=== PATIENT | male | born 1950 | race Caucasian/White ===

== ENCOUNTER → 2019-11-05 | Outpatient (CLI) | payer MEDICARE, SELFPAY ==
--- NOTE | 2019-11-05 | IMM_PTH ---
PATIENT: TERRY BLANCO LOC: [facility] U#:[id number] AGE/SX: 68/M ROOM: RE11/05/[address]: Dr. Rick Alves MD : 1950 BED: DIS: 11/05/2019 SPEC #: [id number] RECD: 11/07/19 13:25 STATUS: JUDITH REJulio Cesar #: [id number] LUIS: 11/05/19 00:[address]: Rick Alves DEPT: IMMUNOHISTOCHEMISTRY RECD BY: Ynes Yee ENTERED: 11/07/19 13:26 SP TYPE: IMMUNO OTHR DR: Dr. Marcos Christiansen MD Tissues: A - PROSTATE RIGHT D - PROSTATE LEFT Procedures: 34BE12 (add) Pankeratin (add) P40 (add) 34BE12 (initial) PHYSICIAN & INSTITUTION [place] [id number] SPECIMEN INFORMATION: Tissue Source: A - Right prostate, apex, core biopsy, D - Left prostate, apex, core biopsy Clinical Info: Elevated PSA Specimen Number: [id number] A & D CPT code: 48725, 02679 x5 METHODOLOGY: Deparaffinized sections of prefer/formalin-fixed tissue or PAP/DQ stained slides are incubated with monoclonal/polyclonal antibodies/oligonucleotide probes. Localization is made via biotin free immunoperoxidase method. Appropriate controls are performed and reacted as expected. Results on target cell population are indicated in the following table: RESULTS: ANTIBODY / CLONE RESULT Block A P40 (BC28) negative 34BE12 (34BE12) negative AE1-3 (AE1/AE3/PCK26) positive Block D P40 (BC28) negative 34BE12 (34BE12) negative AE1-3 (AE1/AE3/PCK26) positive These tests were developed and their performance characteristics determined by [facility]. They may not have been cleared or approved by the U.S. Food and Drug Administration. The FDA has determined that such clearance or approval is not necessary. The above immunohistochemical/dualISH markers are ordered and reviewed by the Pathologist. INTERPRETATION: A. Right prostate, apex, core biopsy: Adenocarcinoma. D. Left prostate, apex, core biopsy: Adenocarcinoma. SOULEYMANE:alexandrea 11/08/19
--- NOTE | 2019-11-05 13:15 | PROSBIL_PTH ---
PATIENT: TERRY BLANCO LOC: N[facility] U#:[id number] AGE/SX: 68/M ROOM: RE11/05/[address]: Dr. Rick Alves MD : 1950 BED: DIS: 11/05/2019 SPEC #: [id number] RECD: 11/05/19 17:08 STATUS: JUDITH EUGENE #: [id number] LUIS: 11/05/19 13:[address]: Rick Alves DEPT: SURGICAL PATHOLOGY RECD BY: Brandan Hudson ENTERED: 11/06/19 10:35 SP TYPE: PROST BX TOPHER DR: Dr. Marcos Christiansen MD Tissues: A - PROSTATE RIGHT B - PROSTATE RIGHT C - PROSTATE RIGHT D - PROSTATE LEFT E - PROSTATE LEFT F - PROSTATE LEFT Procedures: PROSTATE BX HEADER OPERATION: Prostate biopsy PRE-OP DIAGNOSIS: Elevated PSA TISSUE SUBMITTED: A - Right apex, B - Right mid, C - Right base, D - Left apex, E - Left mid, F - Left base MICROSCOPIC DIAGNOSIS A. Right prostate, apex, core biopsy: Prostatic adenocarcinoma. Chaparro grade: 5+3=8 Number of cores involved: 1/1 Proportion of tissue involved: ~10-15% Perineural invasion: Not identified. Greatest tumor length: 0.1 cm See comment. B. Right prostate, mid, core biopsy: Prostatic adenocarcinoma. Chaparro grade: 5+3=8 Number of cores involved: 2/2 Proportion of tissue involved: ~30-40% Perineural invasion: Not identified. Greatest tumor length: 0.4 cm C. Right prostate, base, core biopsy: Prostatic adenocarcinoma. Lopeno grade: 5+4=9 Number of cores involved: 2/2 Proportion of tissue involved: ~80% Perineural invasion: Present. Greatest tumor length: 1.3 cm See comment. D. Left prostate, apex, core biopsy: Prostatic adenocarcinoma. Lopeno grade: 3+4=7 Number of cores involved: 1/1 Proportion of tissue involved: ~10% Perineural invasion: Not identified. Greatest tumor length: 0.1 cm See comment. E. Left prostate, mid, core biopsy: Prostatic tissue, negative for malignancy. F. Left prostate, base, core biopsy: Prostatic tissue, negative for malignancy. SJ:alexandrea 11/07/19 COMMENT A. Immunohistochemistry ([id number]) supports the above diagnosis. C. Focal tertiary pattern 3 is also noted. D. Immunohistochemistry ([id number]) supports the above diagnosis. Case has been reviewed in consultation with Dr. Calderon who concurs with the above diagnosis. IDC:AM MICROSCOPIC DESCRIPTION Slides are reviewed. GROSS DESCRIPTION A - Received is one container designated prostate, right apex. The specimen consists of one elongated fragment of light daily-white soft tissue measuring 1.3 cm in length and 0.1 cm in diameter. The specimen is totally submitted in one cassette. B - Received is one container designated prostate, right mid. The specimen consists of two elongated fragments of light daily-white soft tissue measuring 1.2 and 1.5 cm in length and 0.1 cm in diameter. The specimen is totally submitted in one cassette. C - Received is one container designated prostate, right base. The specimen consists of two elongated fragments of light daily-white soft tissue measuring 1.3 and 1.5 cm in length and 0.1 cm in diameter. The specimen is totally submitted in one cassette. D - Received is one container designated prostate, left apex. The specimen consists of one elongated fragment of light daily-white soft tissue measuring 1.1 cm in length and 0.1 cm in diameter. The specimen is totally submitted in one cassette. E - Received is one container designated prostate, left mid. The specimen consists of two elongated fragments of light daily-white soft tissue each measuring 1.2 cm in length and 0.1 cm in diameter. The specimen is totally submitted in one cassette. F - Received is one container designated prostate, left base. The specimen consists of two elongated fragments of light daily-white soft tissue measuring 1 and 1.5 cm in length and 0.1 cm in diameter. The specimen is totally submitted in one cassette. / SOULEYMANE:alexandrea 11/06/19 TC:0 CPT: G0146
== END | disposition home or self-care (01) ==
LOC: LABSPEC 11-06 10:27
PROVIDERS: PCP Family Medicine; Referring Provider Urology; Visit Provider Urology
DX: R97.20 Elevated prostate specific antigen [PSA] (principal)
CPT/HCPCS: 88305; 88341; 88342; G0416

== ENCOUNTER → 2019-11-15 09:59 | Outpatient (CLI) | payer MEDICARE, SELFPAY ==
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
== END ==
PROVIDERS: PCP Family Medicine; Referring Provider Urology; Visit Provider Urology
DX: C61 Malignant neoplasm of prostate (principal)
CPT/HCPCS: 78306

== ENCOUNTER → 2019-11-19 14:19 | Outpatient (CLI) | payer MEDICARE, SELFPAY ==
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
[2019-11-19 14:46] LABS: CREATININE FINGERSTICK 0.6 mg/dL (0.70-1.30)
== END ==
PROVIDERS: PCP Family Medicine; Referring Provider Urology; Visit Provider Urology
DX: C61 Malignant neoplasm of prostate (principal)
CPT/HCPCS: 74178; Q9967

== ENCOUNTER → 2022-11-12 | Outpatient (CLI) | payer MEDICARE, SELFPAY ==
--- NOTE | 2022-11-12 07:18 | CT_ITS ---
STUDY: CT ABDOMEN AND PELVIS WITH AND WITHOUT CONTRAST REASON FOR EXAM: Male, 71 years old. GROSS HEMATURIA. History of prostate carcinoma and prior prostatectomy. RADIATION DOSAGE (If Supplied By Facility): CTDIvol = ( 25.91 ) mGy, DLP = ( 5205.57 ) mGycm TECHNIQUE: Transaxial images were obtained from the dome of the diaphragm to the symphysis pubis without oral contrast. IV 100mL Isovue-300 was administered. Sagittal and coronal images were reconstructed. Individualized dose optimization techniques were used for this CT. COMPARISON: Comparison is made with prior study November 19, 2019. FINDINGS: The visualized lung bases are unremarkable. Coronary artery calcification. There is decreased attenuation of the liver consistent with steatosis. There are multiple small gallstones. Normal spleen. Normal pancreas. Normal bilateral adrenal glands. Mild degree of bilateral hydronephrosis and hydroureter down to the ureterovesical junction. There is a small hiatal hernia. Normal small intestine. There are multiple colonic diverticula consistent with diverticulosis. The appendix is visualized and appears normal. There is scattered atherosclerotic calcification of the abdominal aorta and its major visceral branches, without a demonstrated aneurysm. Normal inferior vena cava. There is borderline retroperitoneal lymphadenopathy with enlarged nodes no greater than 10mm in the short axis diameter. Diffuse bladder wall thickening. Contracted urinary bladder. The patient is status post prostatectomy. There now is evidence of diffuse soft tissue prominence in the presacral region down to the coccygeal region. This may represent recurrent tumor. There is a small umbilical hernia containing fat. Small bilateral benign-appearing inguinal lymph nodes. There are mild degenerative changes of the visualized lumbar spine. CT/CT Abd/Pelvis W/WO Contrast IMPRESSION: Bilateral hydronephrosis and hydroureter. Diffuse bladder wall thickening. Diffuse presacral soft tissue swelling in the pelvis. Recurrent neoplastic process should BE ruled out. Fatty infiltration of the liver. Multiple small gallstones. Electronically Signed: Guy Ortiz MD at 12:51 EDT ,
[2022-11-12 07:47] LABS: EGFR FINGERSTICK > 60.0000 mL/min (>60)
== END | disposition home or self-care (01) ==
PROVIDERS: PCP Family Medicine; Referring Provider Urology; Visit Provider Urology
DX: C61 Malignant neoplasm of prostate (principal); R31.0 Gross hematuria
CPT/HCPCS: 74178; Q9967

== ENCOUNTER → 2023-05-19 | Outpatient (CLI) | payer MEDICARE, SELFPAY ==
--- OUTSIDE RECORDS SUMMARY | 2023-05-19 10:22 | XMS RPT_ITS | CCD ---
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 a suprapubic catheter, your healthcare provider will tell you how to clean your skin around the catheter. This is a catheter that was surgically placed into the bladder through the lower abdomen. Step 4. Check and clean the catheter tubing Check the tubing. If there are kinks, cracks, clogs, or you can t see into the tubing, you ll need to change to new tubing as you were shown by your healthcare provider. If the current tubing can still be used, wash it with soap and water. Always wash the tubing in the direction away from your body. Don't pull on the tubing. Dry the tubing with a clean washcloth or paper towel. Step 5. Clean the drainage bag Have a clean backup bag or other drainage device ready. Follow these steps: oWash your hands well with soap and water. oDisconnect the bag from the catheter tubing. Connect the tubing to the backup bag or drainage device. oDrain any remaining urine from the bag you just disconnected. Close the drainage valve. oPour some warm (not hot) soapy water into the bag. Swish the soap around, being sure to get the corners of the bag. oOpen the drainage valve to drain the soap. Close the valve.: oUse a certain solution to clean the bag if your healthcare provider recommends one. Recommended solutions may include: ? 2 parts vinegar and 3 parts water ? 1 tablespoon of chlorine bleach mixed with a half cup of water oAsk your healthcare provider how often you should clean your bag and what solution you should use to reduce odor and keep your bag free of germs. oShake the solution a bit and allow it to remain in the bag for 30 minutes. oDrain the solution and rinse the bag with cold tap water. oHang the bag to drain and air-dry. When to call your healthcare provider Call your healthcare provider right away if you have any of the following: Little or no urine flowing into the bag Urine leaking where the catheter enters the body Pain, burning, or redness of the area where the catheter enters the body Bloody urine (a trace of blood is normal) Cloudy or foul-smelling urine, or sand-like grains in your urine Pain in your lower back or lower abdomen Your catheter falls out Fever of 100.4 F (38 C) or higher, or as directed by your healthcare provider Shaking chills [id number] [employer] [address] [place] [address]. All rights reserved. This information is not intended as a substitute for professional medical care. Always follow your healthcare professional's instructions. 11/02/2022 14:56:21 Hematuria: Possible Causes Hematuria: Possible Causes Many things can lead to blood in the urine (hematuria). The blood may be seen with the eye (macroscopic or gross hematuria). Or it may only be seen when the urine is looked at under a microscope (microscopic hematuria). Some of the most common causes of blood in the urine are listed below. Often, no cause for the blood can be found. This is called idiopathic hematuria. Kidney or bladder stones are collections of crystals. They form in the urine. Stones may be found anywhere in the urinary tract. But they form most often in the kidneys or bladder. In addition to blood in the urine, they can cause severe pain. BPH stands for benign prostatic hyperplasia. It is enlargement of the prostate gland. It happens as men age. BPH often causes problems with urination. It sometimes causes blood in the urine. A urinary tract infection (UTI) is due to bacteria growing in the urinary tract. It can cause blood in the urine. Other symptoms include burning or pain with urination. You may need to urinate often or urgently. You may also have a fever. Damage to the urinary tract may cause blood in the urine. This damage may be due to a blow or accident. It may also result from the use of a urinary catheter. Very hard exercise may sometimes irritate the urinary tract and cause bleeding. Cancer may occur anywhere in the urinary tract. A tumor may sometimes cause no symptoms other than bleeding. Other possible causes of bleeding include: Prostatitis (infection of the prostate gland) Taking anticoagulants Blockage in the urinary tract Disease or inflammation of the kidney Cystic diseases of the kidneys Sickle cell anemia Vigorous exercise Endometriosis [id number] [employer]. [address] [place] [address]. All rights reserved. This information is not intended as a substitute for professional medical care. Always follow your healthcare professional's instructions. 11/02/2022 14:56:20 Hematuria Blood in the Urine Blood in the urine (hematuria) has many possible causes. If it occurs after an injury (such as a car accident or fall), it is most often a sign of bruising to the kidney or bladder. Common causes of blood in the urine include urinary tract infections, kidney stones, inflammation, tumors, or certain other diseases of the kidney or bladder. Menstruation can cause blood to appear in the urine sample, although it is not coming from the urinary tract. If only a trace amount of blood is present, it will show up on the urine test, even though the urine may be yellow and not pink or red. This may occur with any of the above conditions, as well as heavy exercise or high fever. In this case, your doctor may want to repeat the urine test on another day. This will show if the blood is still present. If it is, then other tests can be done to find out the cause. Home care Follow these home care guidelines: If your urine does not appear bloody (pink, brown or red) then you do not need to restrict your activity in any way. If you can see blood in your urine, rest and avoid heavy exertion until your next exam. Do not use aspirin, blood thinners, or anti-platelet or anti-inflammatory medicines. These include ibuprofen and naproxen. These thin the blood and may increase bleeding. Follow-up care Follow up with your healthcare provider, or as advised. If you were injured and had blood in your urine, you should have a repeat urine test in 1 to 2 days. Contact your doctor for this test. A radiologist will review any X-rays that were taken. You will be told of any new findings that may affect your care. When to seek medical advice Call your healthcare provider right away if any of these occur: Bright red blood or blood clots in the urine (if you did not have this before) Weakness, dizziness or fainting New groin, abdominal, or back pain Fever of 100.4 F (38 C) or higher, or as directed by your healthcare provider Repeated vomiting Bleeding from the nose or gums or easy bruising [id number] [employer] [address] [place] [address]. All rights reserved. This information is not intended as a substitute for professional medical care. Always follow your healthcare professional's instructions. Follow Up Care 11/02/2022 13:36:21 With:WAN LYNN MD, [facility] Address: [address] [place] [address] [address] [place] [phone] When:2-4 days Comments:Schedule appointment as soon as possibleFollow up for cystoscopy and cath removal Return for ferver/signs of infection With:MAURO GRAFF MD Address: [address] [place] [address]- When:2-4 days Comments:Schedule appointment as soon as possibleReturn to ED if symptoms worsenFollow up for lab review/ recheck and blood pressure [facility] 11-02-2022 Emergency department Discharge summary Discharge Instructions Thank you for allowing [facility] to assist you with your healthcare needs. The following is important discharge information regarding your hospital visit. Diagnosis from Today's Visit Blood in urine What to Do Next Instructions from Your Care Team No qualifying data available. Post Acute Orders No qualifying data available. You Need to Schedule the Following Appointments Follow Up with WAN LYNN MD, [facility] When Within 2-4 days Why: Schedule appointment as soon as possible Where: [address] [place] [address] [address] [place] [address]- [phone] Follow Up with MAURO GRAFF MD When Within 2-4 days Where: [address] [place] [address]- Allergies NKA Medications Please ask your primary doctor or pharmacist before taking any other medication not listed, including over the counter drugs, herbal medications, vitamins and or supplements as they may interact with your home medications. What How Much When Instructions Last Dose Unchanged aspirin (Aspir-Low 81 mg oral delayed release tablet) by mouth Once a day Unchanged atenolol (atenolol 25 mg oral tablet) 1 tab(s) by mouth Two (2) times a day Unchanged metFORMIN (MetFORMIN (Eqv-Glucophage XR) 500 mg oral tablet, EXTENDED RELEASE) 2 tab(s) by mouth Two (2) times a day Duration: 30 Days Unchanged multivitamin (B Complex 50 oral tablet) 1 tab(s) by mouth Once a day with a meal Unchanged multivitamin (Multivitamin) 1 tab(s) by mouth Every day Unchanged oxybutynin (oxybutynin 10 mg/ 24 hr oral tablet, extended release) 1 tab(s) by mouth Once a day Unchanged pioglitazone (pioglitazone 30 mg oral tablet) 1 tab(s) by mouth Every day Please take this list to your next doctor s visit. Bring all medications you take, including over the counter medications, herbals and other supplements with you to your doctor s visit. Patients and families are reminded to discard old lists and to update any records with all medication providers or retail pharmacies. Education Materials Steinberg Catheter Care A Steinberg catheter is a rubber tube that is placed through the urethra (opening where urine comes out) and into the bladder. This helps drain urine from the bladder. There is a small balloon on the end of the tube that is inflated after insertion. This keeps the catheter from sliding out of the bladder. A Steinberg catheter is used to treat urinary retention (unable to pass urine). It is also used when there is incontinence (loss of bladder control). Home care Finish taking any prescribed antibiotic even if you are feeling better before then. It is important to keep bacteria from getting into the collection bag. Do not disconnect the catheter from the collection bag. Use a leg band to secure the drainage tube, so it does not pull on the catheter. Drain the collection bag when it becomes full using the drain spout at the bottom of the bag. Do not try to pull or remove your catheter. This will injure your urethra. It must be removed by your healthcare provider or nurse. Follow-up care Follow up with your healthcare provider as advised for repeat urine testing and catheter removal or replacement. When to seek medical advice Call your healthcare provider right away if any of these occur: Fever of 100.4 F (38 C) or higher, or as directed by your healthcare provider Bladder pain or fullness Abdominal swelling, nausea or vomiting, or back pain Blood or urine leakage around the catheter Bloody urine coming from the catheter (if a new symptom) Catheter falls out Catheter stops draining for 6 hours Weakness, dizziness, or fainting [id number] [employer] [address] [place] [address]. All rights reserved. This information is not intended as a substitute for professional medical care. Always follow your healthcare professional's instructions. Emptying and Cleaning Your Urinary Catheter Bag You have an indwelling urinary catheter. This drains urine from your bladder into a bag. The bag can be one that is used at your bedside. Or it can be a smaller bag that is strapped to your leg. Follow the steps below to empty and clean a urinary bag. Drain Clean tube Clean catheter Step 1. Drain the bag Wash your hands well with soap and water to prevent infecting the urinary catheter and bag. If the short drainage tube is inserted into a pocket on the bag, take the drainage tube out of the pocket. Hold the drainage tube over a toilet or measuring container. Open the valve. Don t touch the tip of the valve or let it touch the toilet or container. Wash your hands again. Step 2. Clean the drainage tube When the bag is empty, clean the tip of the drainage valve with an alcohol wipe. Close the valve. Reinsert the drainage tube into the pocket, if there is one. Step 3. Clean your skin Wash your hands well before and after cleaning your skin. If you have a catheter (such as a Steinberg) that enters through the urethra, clean the urethral area with soap and water 1 time(s) daily as you were taught by your healthcare provider. You should also clean after every bowel movement to prevent infection. oDon't pull on the tubing when cleaning so you don t injure the urethra. oDon t apply antibiotic ointment or any other antibacterial product to the urethra. oDon t use lubricant on the urethra. oDon t apply powder to the genital area or to the tubing. If you have a suprapubic catheter, your healthcare provider will tell you how to clean your skin around the catheter. This is a catheter that was surgically placed into the bladder through the lower abdomen. Step 4. Check and clean the catheter tubing Check the tubing. If there are kinks, cracks, clogs, or you can t see into the tubing, you ll need to change to new tubing as you were shown by your healthcare provider. If the current tubing can still be used, wash it with soap and water. Always wash the tubing in the direction away from your body. Don't pull on the tubing. Dry the tubing with a clean washcloth or paper towel. Step 5. Clean the drainage bag Have a clean backup bag or other drainage device ready. Follow these steps: oWash your hands well with soap and water. oDisconnect the bag from the catheter tubing. Connect the tubing to the backup bag or drainage device. oDrain any remaining urine from the bag you just disconnected. Close the drainage valve. oPour some warm (not hot) soapy water into the bag. Swish the soap around, being sure to get the corners of the bag. oOpen the drainage valve to drain the soap. Close the valve.: oUse a certain solution to clean the bag if your healthcare provider recommends one. Recommended solutions may include: ? 2 parts vinegar and 3 parts water ? 1 tablespoon of chlorine bleach mixed with a half cup of water oAsk your healthcare provider how often you should clean your bag and what solution you should use to reduce odor and keep your bag free of germs. oShake the solution a bit and allow it to remain in the bag for 30 minutes. oDrain the solution and rinse the bag with cold tap water. oHang the bag to drain and air-dry. When to call your healthcare provider Call your healthcare provider right away if you have any of the following: Little or no urine flowing into the bag Urine leaking where the catheter enters the body Pain, burning, or redness of the area where the catheter enters the body Bloody urine (a trace of blood is normal) Cloudy or foul-smelling urine, or sand-like grains in your urine Pain in your lower back or lower abdomen Your catheter falls out Fever of 100.4 F (38 C) or higher, or as directed by your healthcare provider Shaking chills [phone] [employer] [address] [place] [address]. All rights reserved. This information is not intended as a substitute for professional medical care. Always follow your healthcare professional's instructions. Hematuria: Possible Causes Many things can lead to blood in the urine (hematuria). The blood may be seen with the eye (macroscopic or gross hematuria). Or it may only be seen when the urine is looked at under a microscope (microscopic hematuria). Some of the most common causes of blood in the urine are listed below. Often, no cause for the blood can be found. This is called idiopathic hematuria. Kidney or bladder stones are collections of crystals. They form in the urine. Stones may be found anywhere in the urinary tract. But they form most often in the kidneys or bladder. In addition to blood in the urine, they can cause severe pain. BPH stands for benign prostatic hyperplasia. It is enlargement of the prostate gland. It happens as men age. BPH often causes problems with urination. It sometimes causes blood in the urine. A urinary tract infection (UTI) is due to bacteria growing in the urinary tract. It can cause blood in the urine. Other symptoms include burning or pain with urination. You may need to urinate often or urgently. You may also have a fever. Damage to the urinary tract may cause blood in the urine. This damage may be due to a blow or accident. It may also result from the use of a urinary catheter. Very hard exercise may sometimes irritate the urinary tract and cause bleeding. Cancer may occur anywhere in the urinary tract. A tumor may sometimes cause no symptoms other than bleeding. Other possible causes of bleeding include: Prostatitis (infection of the prostate gland) Taking anticoagulants Blockage in the urinary tract Disease or inflammation of the kidney Cystic diseases of the kidneys Sickle cell anemia Vigorous exercise Endometriosis [id number] [employer]. [address] [place] [address]. All rights reserved. This information is not intended as a substitute for professional medical care. Always follow your healthcare professional's instructions. Blood in the Urine Blood in the urine (hematuria) has many possible causes. If it occurs after an injury (such as a car accident or fall), it is most often a sign of bruising to the kidney or bladder. Common causes of blood in the urine include urinary tract infections, kidney stones, inflammation, tumors, or certain other diseases of the kidney or bladder. Menstruation can cause blood to appear in the urine sample, although it is not coming from the urinary tract. If only a trace amount of blood is present, it will show up on the urine test, even though the urine may be yellow and not pink or red. This may occur with any of the above conditions, as well as heavy exercise or high fever. In this case, your doctor may want to repeat the urine test on another day. This will show if the blood is still present. If it is, then other tests can be done to find out the cause. Home care Follow these home care guidelines: If your urine does not appear bloody (pink, brown or red) then you do not need to restrict your activity in any way. If you can see blood in your urine, rest and avoid heavy exertion until your next exam. Do not use aspirin, blood thinners, or anti-platelet or anti-inflammatory medicines. These include ibuprofen and naproxen. These thin the blood and may increase bleeding. Follow-up care Follow up with your healthcare provider, or as advised. If you were injured and had blood in your urine, you should have a repeat urine test in 1 to 2 days. Contact your doctor for this test. A radiologist will review any X-rays that were taken. You will be told of any new findings that may affect your care. When to seek medical advice Call your healthcare provider right away if any of these occur: Bright red blood or blood clots in the urine (if you did not have this before) Weakness, dizziness or fainting New groin, abdominal, or back pain Fever of 100.4 F (38 C) or higher, or as directed by your healthcare provider Repeated vomiting Bleeding from the nose or gums or easy bruising [phone] [employer]. [address] [place] [address], [place] [address]. All rights reserved. This information is not intended as a substitute for professional medical care. Always follow your healthcare professional's instructions. Additional Information VACCINATE! IT SAVES LIVES! Members of the community who have not yet received the COVID-19 vaccine and would like to receive it can visit one of [facility] vaccine clinics. There are many vaccine clinic locations within the [facility]. For locations and available times, please visit [email or web address] It is important to note that some COVID mobile vaccine clinics are held outdoors and may be canceled in rainy or stormy conditions. To learn more about pediatric vaccinations (ages 5-11), we invite you to visit the [facility] webpage. [email or web address] To learn more about the COVID-19 vaccine, we invite you to visit the CDC website for a list of frequently asked questions. https://www.cdc.gov/coronavirus/ 2019-ncov/vaccines/faq.html [facility] Patient Portal Access Instructions: Stay connected with your healthcare team and access your personal medical information anytime with the [facility] Patient Portal. If you would like a full copy of your medical records please contact the [facility] Medical Records Department Tuesday through Tuesday between 8a.m. and 4:30p.m. Please follow the directions below to access the portal: 1.Access the email account you provided upon registration to the [facility].2.Look for an invitation email from [facility].3.Open the email and access the invitation link: Accept Invitation to [facility].Fill in the required suh to create your account. Sign into [email or web address] with your username and password that you created in the above steps to stay up to date. You can then view a summary of results, a summary of your visits, and the ability to download your summaries to your computer or send the information securely to a physician. Remember that your healthcare information is confidential, so carefully consider who you will allow to register on the [facility] Patient Portal for access to your information. You can also access the [facility] Patient Portal on the [employer]. Simply click on Health Records under Health Data and then click on the [facility] logo. HOW TO SAFELY DISPOSE OF PRESCRIPTION MEDICATIONS Please use one of the following methods to safely dispose of your unused medications. 1.Use a drug disposal kit: the drug disposal pouch allows you to safely discard your old and unused drugs. Ask your nurse to give you one when you are discharged.2.Visit a local take-back location: Many local pharmacies and police departments have programs that collect old and unwanted prescription drugs. Call your local pharmacy or go to [email or web address] to find one close to you.3.Make use of household items: Use cat litter or old coffee grounds to dispose medications if other options are not available. Mix your drugs with these household products, seal them in an airtight container and throw it into the garbage. Call [facility]: [phone] to be sure your drugs can be disposed of in this way. Some medicines may require a different approach.4.Never flush your medications down the toilet. IF YOU HAVE BEEN PRESCRIBED AN OPIOIDS FOR PAIN If you have been prescribed an opioid (such as hydrocodone, oxycodone or morphine), it is critical to understand the possible side effects and risks of opioid pain medications. Even when taken as directed, opioids can have several side effects including: Tolerance, meaning you might need to take more of a medication for the same pain relief. Nausea, vomiting and/or constipation. Sleepiness, dizziness, dry mouth, confusion, depression or itching. Physical dependence, meaning you have withdrawal symptoms when a medication is stopped ? this can develop within a few days. KNOW YOUR RESPONSIBILITIES It is important to know exactly how much and how often to take the opioid pain medications you are prescribed. Never take opioids in higher amounts or more often than prescribed. Do not combine opioids with alcohol or other drugs that cause drowsiness, such as benzodiazepines, also known as benzos, including diazepam and alprazolam, muscle relaxants or sleep aids. Never sell or share prescription opioids. This is illegal. Store opioids in a secure place and out of reach of others (including children, family, friends and visitors). The last page(s) of this document has been signed and retained as a CHART COPY Signatures Patient Education Materials Steinberg Catheter, Care Emptying and Cleaning Your Urinary Catheter Bag Hematuria: Possible Causes Hematuria Medication Leaflets My discharge plan and instructions have been reviewed and explained to me and I,TERRY BLANCO understand my current condition and have read and understand these discharge instructions. I have received a written copy of the plan/instructions. If I have questions, I am aware that I should contact my doctor. Patient/Information Clerk Cashier Signature: Date/Time: Relationship to Patient: Witness Name/Signature: Date/Time: [facility] 11-02-2022 Note HNO ID: [id number] Author: Senia Starr MD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 information is protected by the Federal Confidentiality of Alcohol and Drug Abuse Patient Records regulations: The Federal rules restrict any use of the information to criminally investigate or prosecute any alcohol or drug abuse patient.[facility] Center[facility] the event this information is protected by the Federal Confidentiality of Alcohol and Drug Abuse Patient Records regulations: The Federal rules restrict any use of the information to criminally investigate or prosecute any alcohol or drug abuse patient.[facility] Center[facility] the event this information is protected by the Federal Confidentiality of Alcohol and Drug Abuse Patient Records regulations: The Federal rules restrict any use of the information to criminally investigate or prosecute any alcohol or drug abuse patient.[facility] Center[facility] the event this information is protected by the Federal Confidentiality of Alcohol and Drug Abuse Patient Records regulations: The Federal rules restrict any use of the information to criminally investigate or prosecute any alcohol or drug abuse patient.[facility] Center[facility] the event this information is protected by the Federal Confidentiality of Alcohol and Drug Abuse Patient Records regulations: The Federal rules restrict any use of the information to criminally investigate or prosecute any alcohol or drug abuse patient.[facility] Center[facility] the event this information is protected by the Federal Confidentiality of Alcohol and Drug Abuse Patient Records regulations: The Federal rules restrict any use of the information to criminally investigate or prosecute any alcohol or drug abuse patient.[facility] Center[facility] the event this information is protected by the Federal Confidentiality of Alcohol and Drug Abuse Patient Records regulations: The Federal rules restrict any use of the information to criminally investigate or prosecute any alcohol or drug abuse patient.[facility] Center[facility] the event this information is protected by the Federal Confidentiality of Alcohol and Drug Abuse Patient Records regulations: The Federal rules restrict any use of the information to criminally investigate or prosecute any alcohol or drug abuse patient.[facility] Center[facility] the event this information is protected by the Federal Confidentiality of Alcohol and Drug Abuse Patient Records regulations: The Federal rules restrict any use of the information to criminally investigate or prosecute any alcohol or drug abuse patient.[facility] Center[facility] the event this information is protected by the Federal Confidentiality of Alcohol and Drug Abuse Patient Records regulations: The Federal rules restrict any use of the information to criminally investigate or prosecute any alcohol or drug abuse patient.[facility] Reason for Visit (unrecogniz ed section and content) Reason Comments Appointment Cancelled Reason Comments Patient Update Reason Comments Consult Reason Comments Follow Up Reason Comments Established Patient Reason Comments Established Patient Reason Comments New Knee Pain Specialty Diagnoses / Procedures Referred By Anton t Referred To Contact Orthopedics Diagnoses Synovial cyst of left popliteal space Procedures CONSULT TO ORTHOPAEDICS OFFICE/OUTPATIENT NEW HIGH MDM 60-74 MINUTES Alana Marie, DO [address] [facility] [address] [place] [address] Referral ID Status Reason Start Date Expiration Date Visits Requested Visits Authorized [id number] Pending Review PCP Requested Referral 09/30/2022 09/30/2023 1 1 Care Teams (unrecognized sec tion and content) Equipment Technician Relationship Specialty Start Date End Date Mauro Graff MD [address] [place] [address] PCP - General Family Practice 01/15/20 Faheem Clarke MD, [address] [place] [address] Physician Radiation Oncology 04/28/20 Equipment Technician Relationship Specialty Start Date End Date Mauro Graff MD [address] [place] [place] [address] PCP - General Family Medicine 01/15/20 Faheem Clarke MD, [address] [place] [address] Physician Radiation Oncology 04/28/20 Equipment Technician Relationship Specialty Start Date End Date Mauro Graff MD [address] [place] [address] PCP - General Family Medicine 01/15/20 Faheem Clarke MD, [address] [place] [address] Physician Radiation Oncology 04/28/20 Equipment Technician Relationship Specialty Start Date End Date Mauro Graff MD [address] [place] [address] PCP - General Family Medicine 01/15/20 Faheem Clarke MD, [address] [place] [address] Physician Radiation Oncology 04/28/20 Equipment Technician Relationship Specialty Start Date End Date Mauro Graff MD [address] [facility] [place], [place] [id number] PCP - General Family Medicine 01/15/20 Faheem Clarke MD, [address] [place], [place] [address] [phone] Physician Radiation Oncology 04/28/20 Equipment Technician Relationship Specialty Start Date End Date Mauro Graff MD [address] [place] [address] PCP - General Family Medicine 01/15/20 Faheem Clarke MD, [address] [place] [address] Physician Radiation Oncology 04/28/20 Equipment Technician Relationship Specialty Start Date End Date Mauro Graff MD [address] [place] [address] PCP - General Family Medicine 01/15/20 Faheem Clarke MD, [address] [place] [address] Physician Radiation Oncology 04/28/20 Equipment Technician Relationship Specialty Start Date End Date Mauro Graff MD [address] [place] [address] PCP - General Family Medicine 01/15/20 Faheem Clarke MD, [address] [place] [address] Physician Radiation Oncology 04/28/20 Equipment Technician Relationship Specialty Start Date End Date Mauro Graff MD [address] [place] [address] PCP - General Family Medicine 01/15/20 Faheem Clarke MD, [address] [place] [address] Physician Radiation Oncology 04/28/20 Equipment Technician Relationship Specialty Start Date End Date Mauro Graff MD [facility] [place] [address] PCP - General Family Medicine 01/15/20 Faheem Clarke MD, MD [address] [place] [address] Physician Radiation Oncology 04/28/20 Care Team (unrecognized sect ion and content) Care Team Personnel Name: MAURO GRAFF MD Position: P4 Physician - Primary Care Member Role: Primary Care Physician Address: Address: [address] [place] [address]- Care Team Related Persons Name: MISSY BLANCO Address: [address] [place], [place] [id number] [place] Care Team Personnel Name: MAURO GRAFF MD Position: P4 Physician - Primary Care Member Role: Primary Care Physician Address: Address: [address] [place] [address]- Care Team Related Persons Name: MISSY BLANCO Address: Home [address] [place], [place] [id number] [place] Care Team Personnel Name: MAURO GRAFF MD Position: P4 Physician - Primary Care Member Role: Primary Care Physician Address: Address: [facility] [place] [address]- [place] Care Team Related Persons Name: EDMUND BLANCORICIA Address: Home [address] [place], [place] [id number] [place] Care Team Personnel Name: MARUO GRAFF MD Position: P4 Physician - Primary Care Member Role: Primary Care Physician Address: Address: [address] [place], [place] [address]- [place] Care Team Related Persons Name: EDMUND BLANCORICIA Address: Home [address] [place], [place] [id number] Care Team Personnel Name: MAURO GRAFF MD Position: P4 Physician - Primary Care Member Role: Primary Care Physician Address: Address: [address] [place] [address] Care Team Related Persons Name: MISSY BLANCO Address: Home [address] [place], [place] [id number] Care Team Personnel Name: MAURO GRAFF MD Position: P4 Physician - Primary Care Member Role: Primary Care Physician Address: Address: [address] [place] [address]- Care Team Related Persons Name: MISSY BLANCO Address: Home [address] [place], [place] [phone] Care Team Personnel Name: MAURO GRAFF MD Position: P4 Physician - Primary Care Member Role: Primary Care Physician Address: Address: [address] [place] [address] Care Team Related Persons Name: MISSY BLANCO Address: [address] [phone] FOR RECORDS PERTAINING TO PATIENTS WHO ARE OR HAVE BEEN ENROLLED IN A CHEMICAL DEPENDENCY/SUBSTANCEABUSE PROGRAM, SOME INFORMATION MAY BE OMITTED. This clinical summary was aggregated from multiple sources. Caution should be exercised in using it in the provision of clinical care. This summary normalizes information from multiple sources, and as a consequence, information in this document may materially change the coding, format and clinical context of patient data. In addition, data may be omitted in some cases. CLINICAL DECISIONS SHOULD BE BASED ON THE PRIMARY CLINICAL RECORDS. [facility] [employer] provides no warranty or guarantee of the accuracy or completeness of information in this document.
[2023-05-19 11:15] LABS: PSA,Total- Diagnostic 5.72 ng/mL (0.0-4.0)
== END | disposition home or self-care (01) ==
PROVIDERS: PCP Family Medicine; Referring Provider Urology; Visit Provider Urology
DX: C61 Malignant neoplasm of prostate (principal); N30.41 Irradiation cystitis with hematuria; Z12.5 Encounter for screening for malignant neoplasm of prostate
CPT/HCPCS: 36415; 84153